=== PATIENT | male | born 1995 | race Caucasian/White ===

== ENCOUNTER 2021-09-13 00:54 | Emergency (ER) | payer OTHER ==
[~2021-09-13] VITALS: Ht 172.7 cm; Wt 56.8 kg
[~2021-09-13 00:54] MED LIST: METH10SO PO
[2021-09-13 01:45] LABS: AMPHET/METH SCREEN,URINE NEGATIVE (NEGATIVE); BARBITURATE SCREEN, URINE NEGATIVE (NEGATIVE); BENZODIAZEPINES SCREEN,URINE NEGATIVE (NEGATIVE); CANNABINOID SCREEN,URINE NEGATIVE (NEGATIVE); COCAINE SCREEN,URINE NEGATIVE (NEGATIVE); METHADONE SCREEN, URINE NEGATIVE (NEGATIVE); OPIATE SCREEN,URINE NEGATIVE (NEGATIVE)
[2021-09-13] MEDS ORDERED: LORazepam 1 MG TABLET PO ONE (01:45)
[2021-09-13 01:58] LABS: PHENCYCLIDINE SCREEN,URINE NEGATIVE (NEGATIVE)
[2021-09-13 02:26] VITALS: BP 106/63
== END 2021-09-13 03:30 | disposition home or self-care (01) ==
LOC: EMS 00:57
DX: F41.9 Anxiety disorder, unspecified (principal); F17.210 Nicotine dependence, cigarettes, uncomplicated; F11.90 Opioid use, unspecified, uncomplicated; Z87.39 Personal history of other diseases of the musculoskeletal system and connective tissue
CPT/HCPCS: 99283